=== PATIENT | male | born 1975 | race Caucasian/White ===

== ENCOUNTER 2017-05-27 15:33 | Emergency (ER) | payer BC ==
[2017-05-27] MEDS ORDERED: NS 0.9% 1000 ML* 1,000 ML IV ONE (16:13)
[2017-05-27] MEDS ORDERED: Metoprolol Tartrate IV* 1 MG/ML 5 ML VIAL IV ONE (16:14)
[2017-05-27 16:53] LABS: ABS Basophils 0.1 10^3/ul (0-0.2); ABS Eosinophils 0 10^3/ul (0-0.6); ABS Lymphocytes 1.5 10^3/ul (1.0-4.8); ABS Monocytes 0.4 10^3/ul (0-0.8); ABS Neutrophils 2.5 10^3/ul (1.5-7.7); ABS Nucleated RBC 0 10^3/ul; Hematocrit 47 % (42-52); Hemoglobin 16.4 g/dl (14.0-18.0); Lymphocyte % 32.5 % (25-47); Mean Corpuscular HGB Conc 35 g/dl (31-36); Mean Corpuscular Hemoglobin 32 pg (27-31); Mean Corpuscular Volume 91 fL (80-94); Nucleated Red Blood Cells % 0.1; Platelet Count 191 10^3/ul (150-450); Red Blood Count 5.19 10^6/ul (4.0-5.4); Red Cell Distribution Width 13 % (10.5-15); White Blood Count 4.5 10^3/ul (3.5-10.8)
--- NOTE | 2017-05-27 16:59 | RAD ---
INDICATION: Chest pain. Palpitations COMPARISON: None TECHNIQUE: An AP portable view obtained at 1642 hours is submitted. FINDINGS: Bones/Soft Tissues: There are no acute bony findings. Cardiomediastinal: The cardiomediastinal silhouette is normal. Lungs: There are no infiltrates. Pleura: There are no pleural effusions. Other: None IMPRESSION: NORMAL CHEST.
[2017-05-27 17:12] LABS: EGFR Non-African American 90.9 (>60)
[2017-05-27 18:13] VITALS: BP 118/77
--- NOTE | 2017-05-27 19:56 | ED ---
Kingsley Mcmahan Gabriel, scribed for Tho Kimbrough MD on 05/27/17 at 1615 . HPI Chest Pain - HPI Summary HPI Summary: This patient is a 41 year old M presenting to [facility] with a chief complaint of chest tightness that began a week ago. The patient rates the pain 1/10 in severity. Symptoms alleviated by rest. Patient reports pounding palpitations. Patient denies edema, LE pain, nausea, sweating, fevers, and bowel movement changes. Pt states it feels similar to anxiety. - History of Current Complaint Chief Complaint: EDChestPainROMI Time Seen by Provider: 05/27/17 15:55 Hx Obtained From: Patient Onset/Duration: Started Weeks Ago - 1, Still Present Timing: Constant Initial Severity: Mild Current Severity: Mild Pain Intensity: 1 Pain Scale Used: 0-10 Numeric Chest Pain Location: Diffuse Chest Pain Radiates: No Character: Tightness Alleviating Factor(s): Rest Associated Signs and Symptoms: Positive: Palpitations - Allergy/Home Medications Allergies/Adverse Reactions: Allergies Allergy/AdvReac Type Severity Reaction Status Date / Time No Known Allergies Allergy Verified 05/27/17 15:38 Home Medications: Home Medications NK [No Home Medications Reported] 05/27/17 [History Confirmed 05/27/17] PMH/Surg Hx/FS Hx/Imm Hx Endocrine/Hematology History: Denies: Hx Blood Disorders, Hx Anemia, Hx Coagulopothy Cardiovascular History: Denies: Hx Angina, Hx Congestive Heart Failure, Hx Peripheral Vascular Disease Respiratory History: Denies: Hx Chronic Bronchitis, Hx Pulmonary Edema GI History: Denies: Hx Cirrhosis, Hx Hiatal Hernia History: Denies: Hx Dialysis Sensory History: Reports: Hx Contacts or Glasses Opthamlomology History: Reports: Hx Contacts or Glasses Neurological History: Reports: Other Neuro Impairments/Disorders - HX OF PERIODIC EPISODES OF BACK PAIN X15 YEARS Infectious Disease History: No Infectious Disease History: Denies: Traveled Outside the [place] in Last 30 Days - Family History Known Family History: Positive: Cardiac Disease - grandparents Negative: Diabetes, Respiratory Disease, Seizure Disorder - Social History Occupation: Employed Full-time Alcohol Use: Rare Hx Substance Use: No Substance Use Type: Reports: None Hx Tobacco Use: No Smoking Status (MU): Never Smoked Tobacco Review of Systems Negative: Fever, Skin Diaphoresis Positive: Palpitations, Chest Pain - tightness Gastrointestinal: Negative - bowel movement changes Negative: Nausea Musculoskeletal: Negative - LE pain Negative: Edema All Other Systems Reviewed And Are Negative: Yes Physical Exam - Summary Physical Exam Summary: Appearance: Well appearing, no pain distress Skin: warm with light diaphoresis Head/face: normal Eyes: EOMI, DAVID ENT: moist mucus membranes Neck: supple, non-tender Respiratory: CTA, breath sounds present Cardiovascular: RRR, pulses symmetrical, no irregularity or murmur Abdomen: non-tender, soft Bowel Sounds: present Musculoskeletal: normal, strength/ROM intact, no edema Neuro: normal, sensory motor intact, A&Ox3 Triage Information Reviewed: Yes Vital Signs On Initial Exam: Initial Vitals Temp Pulse Resp BP Pulse Ox 97.4 F 67 16 141/91 100 05/27/17 15:34 05/27/17 15:34 05/27/17 15:34 05/27/17 15:34 05/27/17 15:34 Vital Signs Reviewed: Yes Diagnostics - Vital Signs Vital Signs Temp Pulse Resp BP Pulse Ox 05/27/17 15:34 97.4 F 67 16 141/91 100 - Laboratory Lab Results: Lab Results 05/27/17 05/27/17 05/27/17 Range/Units 16:40 16:40 16:40 WBC 4.5 (3.5-10.8) 10^3/ul RBC 5.19 (4.0-5.4) 10^6/ul Hgb 16.4 (14.0-18.0) g/dl Hct 47 (42-52) % MCV 91 (80-94) fL MCH 32 H (27-31) pg MCHC 35 (31-36) g/dl RDW 13 (10.5-15) % Plt Count 191 (150-450) 10^3/ul MPV 11.0 H (7.4-10.4) um3 Neut % (Auto) 55.6 (38-83) % Lymph % (Auto) 32.5 (25-47) % Starke % (Auto) 9.8 H (0-7) % Eos % (Auto) 1.0 (0-6) % Baso % (Auto) 1.1 (0-2) % Absolute Neuts (auto) 2.5 (1.5-7.7) 10^3/ul Absolute Lymphs (auto) 1.5 (1.0-4.8) 10^3/ul Absolute Monos (auto) 0.4 (0-0.8) 10^3/ul Absolute Eos (auto) 0 (0-0.6) 10^3/ul Absolute Basos (auto) 0.1 (0-0.2) 10^3/ul Absolute Nucleated RBC 0 10^3/ul Nucleated RBC % 0.1 Sodium 140 (139-145) mmol/L Potassium 3.6 (3.5-5.0) mmol/L Chloride 105 (101-111) mmol/L Carbon Dioxide 28 (22-32) mmol/L Anion Gap 7 (2-11) mmol/L BUN 17 (6-24) mg/dL Creatinine 0.91 (0.67-1.17) mg/dL Est GFR ( Amer) 116.9 (>60) Est GFR (Non-Af Amer) 90.9 (>60) BUN/Creatinine Ratio 18.7 (8-20) Glucose 74 (70-100) mg/dL Lactic Acid 1.1 (0.5-2.0) mmol/L Calcium 9.9 (8.6-10.3) mg/dL Total Bilirubin 1.30 H (0.2-1.0) mg/dL AST 19 (13-39) U/L ALT 24 (7-52) U/L Alkaline Phosphatase 58 (34-104) U/L Total Creatine Kinase 79 (10-223) U/L Troponin I 0.00 (<0.04) ng/mL Total Protein 7.6 (6.4-8.9) g/dL Albumin 4.7 (3.2-5.2) g/dL Globulin 2.9 (2-4) g/dL Albumin/Globulin Ratio 1.6 (1-3) TSH 1.21 (0.34-5.60) mcIU/mL Thyroxine (T4) 6.75 (6.09-12.23) mcg/mL Result Diagrams: 05/27/17 16:40 05/27/17 16:40 Lab Statement: Any lab studies that have been ordered have been reviewed, and results considered in the medical decision making process. - Radiology CXR Radiology Interpretation Completed By: Radiologist - normal chest ED physician has reviewed this radiology report. - EKG 15:41 Cardiac Rate: NL EKG Rhythm: Sinus Rhythm - at [address] Segment: Normal Ectopy: None EKG Interpretation: normal axis and intervals Re-Evaluation - Re-Evaluation First Eval Re-Evaluation Time: 17:45 Change: Unchanged Comment: I discussed test results with the patient. Chest Pain Course/Dx - Course Course Of Treatment: pt with abnl sensation or pounding heart beat. Not sure if its going fast. Very rare skipped beat. No ectopy or tachycardia or irregularity noted. Labs benign. Feeling better with fluids and a small dose of beta suraj. Refer to PMD for outpt holter. D/C in good condition. - Chest Pain Differential Diagnosis/HQI/PQRI: Acute PR, GI Disease, Other: - PACs, PVCs, afib , other arrhythmia - Diagnoses Provider Diagnoses: Palpitations Discharge - Sign-Out/Discharge Documenting (check all that apply): Discharge - Discharge Plan Condition: Good Disposition: HOME Patient Education Materials: Heart Palpitations (ED) Referrals: West Bhagat MD [Medical Doctor] - Additional Instructions: Cut back on caffeine, hydrate well, avoid alcohol and get plenty of sleep. Return if worse, fast/irregular pulse, worse or other concerns as discussed. See your doctor tomorrow to arrange HOLTER monitor or other testing. - Billing Disposition and Condition Condition: GOOD Disposition: HOME The documentation as recorded by the Kingsley hines Gabriel accurately reflects the service I personally performed and the decisions made by me, Tho Kimbrough MD.
== END 2017-05-27 18:15 | disposition home or self-care (01) ==
LOC: ED 15:33
DX: R00.2 Palpitations (principal); R07.9 Chest pain, unspecified
CPT/HCPCS: 36415; 71045; 80053; 82550; 83605; 84436; 84443; 84484; 85025; 93005; 96374; 99283; J3490